=== PATIENT | male | born 1970 | race African-American/Black ===

== ENCOUNTER 2019-12-16 09:44 | Emergency (ER) | payer OTHER, SELFPAY ==
[2019-12-16 09:51] VITALS: BP 156/105; PULSE 56; RESP 16; TEMP 36.8; O2SAT 100; BMI 25.8
--- NOTE | 2019-12-16 09:54 | ED_ITS ---
HPI - Animal Bite General: Chief Complaint: Animal Bite Stated Complaint: DOG BITE ON RIGHT HAND Time Seen by Provider: 12/16/19 09:54 History of Present Illness: HPI narrative: 49-year-old male comes in complaining of dog bite he was bitten on his right hand last night the thenar eminence he has puncture wounds on both dorsal and palmar surfaces not been draining he denies fever he states his tetanus is up-to-date he has had over the last 3 to 4 years. It is somewhat tender he previously had a third metacarpal fracture but the dog did not bite over that area. Associated symptoms: Deny chills or fever(s) Review of Systems Const: Denies: fever, chills, body aches, change in appetite, fatigue or malaise Card: Denies: chest pain, edema, shortness of breath on exertion or shortness of breath when lying down Resp: Denies: shortness of breath, productive cough or non-productive cough GI: Denies: abdominal pain, nausea, vomiting, vomiting blood, coffee grounds in vomit, diarrhea, constipation, bloating, blood in stool or black tarry stool Skin/Breast: Reports: skin swelling and other (Puncture wounds on the thenar eminence posteriorly and anteriorly); Denies: rash or itching PFSH ED PFSH: Social History Smoking and tobacco status: current every day smoker Physical Exam Const: COMMON NORMALS: no apparent distress GENERAL APPEARANCE: cooperative and comfortable ORIENTATION/CONSCIOUSNESS: Yes awake, Yes oriented to person, Yes oriented to place and Yes oriented to time Neck/C-Spine: COMMON NORMALS: no JVD Lymph: LYMPHATIC: no lymphadenopathy noted and no lymphedema noted Resp: COMMON NORMALS: normal respiratory effort, no retractions, no use of accessory muscles and clear to auscultation bilaterally AUSCULTATION: clear to auscultation bilaterally Cardio: COMMON NORMALS: no JVD, regular rate, regular rhythm and no murmurs RATE: regular rate RHYTHM: regular rhythm Extremity: COMMON NORMALS: normal to inspection, normal capillary refill and no clubbing, cyanosis or edema NARRATIVE EXTREMITY EXAM: Moderate swelling of the thenar eminence on the right hand. There is a puncture wound on the dorsum of the thenar eminence and on the palmar surface no active drainage from the wounds. 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 There is no sign of sensation loss. There is good capillary refill. No lymphatic streaking no epitrochlear lymphadenopathy. Neuro: SENSORIUM/ORIENTATION: Yes oriented to person, Yes oriented to place and Yes oriented to time Skin: COMMON NORMALS: no rashes or lesions noted GENERAL SKIN EXAM: no rashes or lesions noted Course Vital Signs: Vital signs: Vital Signs Temperature 98.3 F 12/16/19 09:51 Pulse Rate 68 12/16/19 10:29 Respiratory Rate 16 12/16/19 10:29 Blood Pressure 136/92 12/16/19 10:29 Pulse Oximetry 99 12/16/19 10:29 MDM - Animal Bite MDM Narrative: Medical decision making narrative: Patient advised to return to the emergency room if is any fever sweats or chills develops any streaking in his arm or lymphadenopathy discussed and showed him where to look for these things will start him on some antibiotics patient states his tetanus is up-to-date. Discharge Plan Discharge Patient Disposition: Home, Self-Care Clinical Impression: Dog bite Condition: Stable Prescriptions: New Augmentin 875-125 mg tablet 1 tab PO BID Qty: 20 RF: 0 diclofenac sodium 75 mg tablet,delayed release (DR/EC) 75 mg PO Q12H PRN (Reason: pain) Qty: 20 RF: 0 Discharge Orders: Discharge Order (Routine); Ordered 12/16/19 Ordered By: Kike Dykes Referrals: Raffy Vyas [Primary Care Provider] - Discharge Diet: Usual diet Discharge Activity: Resume usual activity Activity Restrictions/Additional Instructions: Follow-up as needed with your primary care doctor or at the urgent clinic locally Discharge Date/Time: 12/16/19 10:30 Coding Level of Care Code ED Bunch Maker Hand for Marilou Garcia
--- NOTE | 2019-12-16 09:55 | XR_ITS ---
WS: [id number] RIGHT HAND: 3 VIEW(S) TECHNIQUE: PA, oblique and lateral. HISTORY: crush injury, animal bite COMPARISON: None available. No acute fracture or dislocation. Mild interphalangeal joint space narrowing. No foreign body. No significant soft tissue swelling. Small erosion at the ulnar styloid. There are several lytic lesions in the carpal bones most signific ant involving the capitate and lunate. XR/XR hand RT min 3V* [id number] IMPRESSION: 1. No fracture or foreign body. 2. Erosions in the ulnar styloid with lytic changes in the capitate and lunate . Correlate for possible rheumatoid arthritis.
--- NOTE | 2019-12-16 10:05 | PC.NURSE ---
[facility]'s office NTFD of incident.
[2019-12-16 10:29] VITALS: BP 136/92; PULSE 68; RESP 16; O2SAT 99
== END 2019-12-16 10:30 | disposition home or self-care (01) ==
PROVIDERS: Emergency Provider Family Medicine; Family Provider Family Medicine; PCP Family Medicine
DX: S61.451A Open bite of right hand, initial encounter (principal); W54.0XXA Bitten by dog, initial encounter; F17.200 Nicotine dependence, unspecified, uncomplicated
CPT/HCPCS: 12345; 73130; 99281; 99282

== ENCOUNTER 2020-01-26 01:55 | Emergency (ER) | payer OTHER, SELFPAY ==
[2020-01-26 02:29] VITALS: BP 155/98; PULSE 60; RESP 16; TEMP 37; O2SAT 98; BMI 29.0
[2020-01-26] MEDS: ondansetron 4 MG Tablet PO (02:52)
[2020-01-26] MEDS: HYDROmorphone 1 mg/mL INJ 1 mL 2 MG IM (02:52)
--- NOTE | 2020-01-26 02:59 | XR_ITS ---
WS: [id number] XR ankle RT min 3V* [id number] REASON FOR EXAM: pain FINDINGS: Fusion changes are identified in the tibia talar articulation There is degenerate changes of the fibula tibia articulations. There appears be postop changes with removal of the internal fixation changes. XR/XR ankle RT min 3V* [id number] IMPRESSION: Good fusion of the talotibial joint.
--- NOTE | 2020-01-26 02:59 | XR_ITS ---
WS: [id number] XR foot RT 2V [id number] REASON FOR EXAM: pain FINDINGS: There is evidence of fusion of the tail are tibial joint. The calcaneus was normal. There is scattered degenerate changes over the talus, tarsal navicular. XR/XR foot RT 2V [id number] IMPRESSION: Talotibial fusion. osteoarthritic changes.
--- NOTE | 2020-01-26 03:26 | ED_ITS ---
HPI - Extremity Problem General: Chief complaint: Extremity Injury, Lower Stated complaint: right foot pain Time Seen by Provider: 01/26/20 02:25 History of Present Illness: HPI Narrative: 49-year-old male with a history of trauma to the right ankle requiring fusion presents with right ankle swelling and increasing pain with electrical shock sensations to his foot over the past several days. No long car trips, no fever, no increased swelling, although there is some chronic swelling. MD Complaint: extremity pain, extremity swelling and joint swelling Onset (ago): day(s) Pain Consistency: constant Location: right Radiation: proximal and distal Relieving factors: nothing Exacerbating factors: weight bearing Associated symptoms: Deny chest pain, fever(s), rash or short of breath Review of Systems Const: Denies: fever ENMT: Denies: nose bleeds, post nasal drip or facial/sinus pain Card: Denies: chest pain Resp: Denies: shortness of breath, productive cough, non-productive cough or wheezing GI: Denies: abdominal pain, nausea or vomiting : Denies: difficulty urinating or blood in urine Musc: Denies: redness or joint warmth Skin/Breast: Denies: rash, itching or redness Neuro: Denies: headache, dizziness or vertigo PFSH ED PFSH: Social History Smoking and tobacco status: never smoked Physical Exam Const: GENERAL APPEARANCE: well developed ORIENTATION/CONSCIOUSNESS: Yes oriented to person, Yes oriented to place and Yes oriented to time HENMT: COMMON NORMALS: normocephalic HEAD & SCALP: normocephalic FACE & SINUS: normal facial exam Eye: COMMON NORMALS: PERRL, EOMs intact bilaterally and conjunctivae normal EYELID: eyelids normal CONJUNCTIVA: Yes conjunctivae normal PUPIL: Yes PERRL Neck/C-Spine: COMMON NORMALS: full ROM Chest: COMMONS NORMALS: inspection of chest normal CHEST: No tenderness Resp: COMMON NORMALS: clear to auscultation bilaterally EFFORT & INSPECTION: No tachypneic, No respiratory distress, No retractions, No uses accessory muscles and No tracheal deviation AUSCULTATION: clear to auscultation bilaterally, no rhonchi, no wheezes and lung sounds not diminished Cardio: COMMON NORMALS: regular rate and regular rhythm RATE: regular rate RHYTHM: regular rhythm HEART SOUNDS: no murmurs PERIPHERAL PULSES: radial pulses present GI: INSPECTION: No abdominal distension AUSCULTATION: No hyperactive bowel sounds and No hypoactive bowel sounds PALPATION: No guarding and No rigid PERCUSSION: no dullness to percussion and no tympanic to percussion Extremity: NARRATIVE EXTREMITY EXAM: Right ankle exam reveals some mild swelling. No leg edema. No calf tenderness. There is tenderness over the posterior tibial region. No redness or warmth. Neuro: SENSORIUM/ORIENTATION: Yes oriented to person, Yes oriented to place and Yes oriented to time Psych: COMMON NORMALS: mental status grossly normal Skin: COMMON NORMALS: no rashes or lesions noted GENERAL SKIN EXAM: no rashes or lesions noted Course Vital Signs: Vital signs: Vital Signs Temperature 98.6 F 01/26/20 02:29 Pulse Rate 60 01/26/20 02:29 Respiratory Rate 16 01/26/20 02:29 Blood Pressure 155/98 01/26/20 02:29 Pulse Oximetry 98 01/26/20 02:29 MDM - Extremity (Nontraumatic) MDM Narrative: Medical decision making narrative: Pain to the posterior tibial region, no evidence for DVT. Discharge Plan Discharge Patient Disposition: Home, Self-Care Clinical Impression: Ankle joint pain Qualifiers: Laterality: right Qualified Code(s): M25.571 - Pain in right ankle and joints of right foot Condition: Stable Prescriptions: New Medrol (Carmelo) 4 mg tablets,dose pack See Rx Instructions .ROUTE .COMPLEX Qty: 21 RF: 0 [place] 5-325 mg tablet 1 tab PO Q6H PRN (Reason: pain) Qty: 7 RF: 0 Discharge Orders: Discharge Order (Routine); Ordered 01/26/20 Ordered By: Baldemar Julian Referrals: Librado Miller DPM [Physician] - Discharge Diet: Usual diet Discharge Activity: Resume usual activity Patient Instructions: Arthralgia (ED) Activity Restrictions/Additional Instructions: Return for fever greater than 100, worsening pain despite treatment, streaking redness, other concerning symptoms. Call the podiatry clinic Monday morning for an appointment. Coding Level of Care Code ED Battery Plate Assembler for Marilou Fwd Exam Comprehensive
[2020-01-26] MEDS: dexamethasone 4 mg Tablet 8 MG PO (04:18)
[2020-01-26 04:29] VITALS: BP 131/84; PULSE 52; RESP 16; O2SAT 99
--- NOTE | 2020-01-27 13:57 | DCPLANNER ---
manager legal had message to schedule a follow up appointment for patient with ortho. manager legal called ortho clinic, spoke with Pat, gave clinic patients information. manager legal was told that patients information would be printed and reviewed. Clinic will call immigration case manager and patient with appointment information.
--- NOTE | 2020-01-28 09:58 | DCPLANNER ---
Patient has a follow up appointment scheduled for Wednesday, January 29, 2020 at 8:[address] Miller. manager editorial [facility], was told that patient is not connected with [employer] [employer], he is still connected with [place], that patient would need to call his pact team in [place] and have that [facility] sign [facility] on his [facility] consult. manager editorial called patient and informed patient that he would need to call [place] about his referral. Patient stated that he would.
--- NOTE | 2020-02-14 13:46 | DCPLANNER ---
Patient did attend appointment scheduled for 01.29.20 with ortho.
== END 2020-01-26 04:34 | disposition home or self-care (01) ==
PROVIDERS: Emergency Provider Emergency Medicine
DX: M25.571 Pain in right ankle and joints of right foot (principal)
CPT/HCPCS: 12345; 73610; 73620; 96372; 99281; 99283; J1170; J8540; Q0162

== ENCOUNTER 2020-02-26 13:28 | Outpatient (CLI) | payer OTHER, SELFPAY ==
--- NOTE | 2020-02-26 13:30 | CT_ITS ---
WS: [id number] CT RIGHT FOOT, NONCONTRAST HISTORY: preoperative evaluation Technique: All CT scans at [facility] use at least one of these dose optimization techniq ues: automated exposure control; mA and/or kV adjustment per patient size (includes targeted exams wh ere dose is matched to clinical indication); or iterative reconstruction. DLP: 113.47 mGy.cm COMPARISON: RIGHT foot radiograph 01/26/2020 There is complete bony fusion across the tibiotalar joint space. Lucencies through the talus and dist al fibula are probably from prior hardware. There is marked narrowing of the subtalar joint with subc hondral cystic changes and cortical irregularities greatest along the medial subtalar joint. No acute fractures are identified. Tarsal metatarsal alignment is normal. Mild narrowing at the talonavicular articulation with osteophytes. No acute fractures. CT/CT foot RT wo con* [id number] IMPRESSION: 1. Complete bony fusion across the tibiotalar joint. 2. Hardware removal from the talus and fibula. 3. Advanced degenerative changes at the subtalar joint, greatest along the med ial joint. There is fragmentation and subchondral cystic changes and osteophyte s at the subtalar joint. Probably posttraumatic arthritis. 4. No acute fracture.
== END 2020-02-26 13:29 | disposition home or self-care (01) ==
LOC: RAD 13:31
PROVIDERS: Visit Provider Podiatrist Foot & Ankle Surgery
DX: Z01.818 Encounter for other preprocedural examination (principal)
CPT/HCPCS: 73700

== ENCOUNTER 2020-03-16 10:36 | Emergency (ER) | payer OTHER, SELFPAY ==
[2020-03-16 10:41] VITALS: BP 129/80; PULSE 63; RESP 18; TEMP 36.7; O2SAT 98; BMI 25.8
--- NOTE | 2020-03-16 11:04 | XRR_ITS ---
PROCEDURE INFORMATION: Exam: XR Right Ankle Exam date and time: 03/16/2020 11:27 AM Age: 49 years old Clinical indication: Pain; Ankle; Right; Prior surgery; Surgery date: 6+ months; Patient HX: No new injury TECHNIQUE: Imaging protocol: XR Right ankle. Views: 3 or more views. COMPARISON: CR XR ankle RT min 3V* [id number] 01/26/2020 3:25 AM FINDINGS: Bones/joints: There are complex postoperative changes, with tibiotalar fusion. Screw tracks are noted within the fibula. Soft tissues: Normal. XR/XR ankle RT min 3V* [id number] IMPRESSION: Postoperative changes, stable. Tibiotalar fusion.
--- NOTE | 2020-03-16 11:58 | W.ED.EXTPRO ---
HPI - Extremity Problem General: Chief complaint: Extremity Injury, Lower Stated complaint: right ankle pain Time Seen by Provider: 03/16/20 11:33 History of Present Illness: HPI Narrative: Chronic right ankle pain. Has a 30-day window for given appointment to pain clinic. Has been seen by Dr. Miller has been seen here in the ER couple times. For this pain. Contact the PA hotline a set of appears that he get pain management. [facility]. Associated symptoms: Deny chest pain, fever(s) or rash Review of Systems Const: Denies: fever(s), chills or body aches Eyes: Denies: change in vision or blurry vision ENMT: Denies: throat pain or nasal congestion Card: Denies: chest pain or dyspnea on exertion Resp: Denies: dyspnea, productive cough or non-productive cough GI: Denies: abdominal pain, nausea or vomiting : Denies: difficulty urinating Musc: Reports: extremity pain (Chronic right ankle) Skin/Breast: Denies: rash Neuro: Denies: headache(s) Psych: Denies: anxiety or depression Gordo/Lymph: Denies: easy bruising PFSH ED PFSH: Medical History Anxiety disorder Cervicalgia COPD (chronic obstructive pulmonary disease) Major depressive disorder Post-traumatic stress syndrome Family History Other Anesthesia complication Chronic kidney disease (CKD) Denies family history of Diabetes CAD (coronary artery disease) Clotting disorder Dementia Hyperlipidemia Psychiatric illness Suicide Bleeding disorder Family history of premature coronary artery disease Lung disease Cancer Hypertension Stroke Social History Smoking and tobacco status: never smoked Alcohol intake: never Lives independently: Yes Household members: spouse and children Physical Exam Const: COMMON NORMALS: no acute distress, average body habitus and patient oriented x3 HENMT: COMMON NORMALS: normocephalic HEAD & SCALP: normal to inspection and normocephalic FACE & SINUS: normal facial exam Eye: COMMON NORMALS: conjunctivae normal GENERAL EYE: appearance normal, both eyes and all related structures CONJUNCTIVA: Yes conjunctivae normal Neck/C-Spine: COMMON NORMALS: no JVD Chest: COMMONS NORMALS: normal inspection of the chest Resp: COMMON NORMALS: normal respiratory effort and clear to auscultation bilaterally AUSCULTATION: clear to auscultation bilaterally Cardio: COMMON NORMALS: no JVD, regular rate and regular rhythm RATE: regular rate RHYTHM: regular rhythm GI: COMMON NORMALS: Normal to inspection, nondistended, normoactive bowel sounds present Extremity: COMMON NORMALS: normal to inspection NARRATIVE EXTREMITY EXAM: Right lower extremity appears normal scars from previous surgery. Neuro: COMMON NORMALS: patient oriented x3 Course Vital Signs: Vital signs: Vital Signs Temperature 98.1 F 03/16/20 10:41 Pulse Rate 63 03/16/20 10:41 Respiratory Rate 18 03/16/20 10:41 Blood Pressure 129/80 03/16/20 10:41 Pulse Oximetry 98 03/16/20 10:41 Discharge Plan Discharge Prescriptions: No Action gabapentin 300 mg capsule 300 mg PO TID Qty: 90 RF: 0 (DME) Non-articulating [place] AFO See Rx Instructions .Route .MEDSUPPLY Qty: 1 RF: 0 Medrol (Carmelo) 4 mg tablets,dose pack See Rx Instructions .ROUTE .COMPLEX Qty: 21 RF: 0 [place] 5-325 mg tablet 1 tab PO Q6H PRN (Reason: pain) Qty: 7 RF: 0 Coding Level of Care Code ED Residence Life Coordinator for Marilou Garcia
[2020-03-16 12:13] VITALS: BP 124/83; PULSE 57; RESP 14; O2SAT 100
[2020-03-16] MEDS: ketorolac 60 mg/2 mL INJ IM (12:15)
[2020-03-16 12:50] VITALS: BP 127/78; PULSE 51; RESP 12; O2SAT 99
== END 2020-03-16 12:50 | disposition home or self-care (01) ==
PROVIDERS: Emergency Provider Nurse Practitioner Family
DX: M25.571 Pain in right ankle and joints of right foot (principal); J44.9 Chronic obstructive pulmonary disease, unspecified
CPT/HCPCS: 12345; 73610; 96372; 99281; 99283; J1885

== ENCOUNTER → 2020-06-22 14:03 | Outpatient (BNVA) | payer OTHER, SELFPAY | PROVIDERS: Visit Provider Podiatrist Foot & Ankle Surgery | DX: Z11.59 Encounter for screening for other viral diseases (principal) | CPT/HCPCS: 87635 ==

== ENCOUNTER 2020-06-26 06:08 | Day surgery (SDC) | payer OTHER, SELFPAY ==
[2020-06-25 17:47] VITALS: BMI 26.6
[2020-06-26] VITALS (15 sets, daily range): BP systolic 105–150; BP diastolic 61–88; PULSE 46–60; RESP 11–18; TEMP 36.3–37; O2SAT 95–100
--- NOTE | 2020-06-26 | XR_ITS ---
WS: [id number] Right foot, 3 C-arm fluoroscopy views, 06/26/2020 Clinical Data: RIGHT subtalar fracture Comparison: Right ankle, 03/16/2020. Findings: 2 orthopedic screws extend from the posterior aspect of the calcaneus into the talus. XR/XR foot RT 2V [id number] Impression: Orthopedic screws fusing calcaneal talar articulation.
--- NOTE | 2020-06-26 | SCC_ITS ---
Procedure Done: Right Subtalar joint fusion CPT 31274 25 seconds of fluoroscopic guidance, for a cumulative dose of 0.58 mGy, was provided to Dr. Miller by the radiology department. C-arm images of the RIGHT foot were saved for the patient's permanent record. [facility]
[2020-06-26] MEDS: sodium chloride 0.9% 1,000 ML 30 ML IV (06:35)
--- NOTE | 2020-06-26 07:10 | ANES.PREANE2 ---
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 Proposed Procedure: Operation Date: 06/26/20 07:55 Proposed Procedures p Right Subtalar joint fusion 80978 M19.071 Z98.1(Right) - Librado Miller DPM Was Beta Luma taken within 24 hours: N/A Last intake: Intake Last Liquid Date 06/25/20 Last Liquid Time 16:00 Last Solid Date 06/25/20 Last Solid Time 16:00 Social: Social History: No alcohol and No tobacco Exam: Pre-Anes Outpt Exam: alert, oriented x 3, clear to auscultation bilaterally and regular rate & rhythm Airway: Submandibular: WNL Cervical ROM: WNL MP: 1 History/ROS: No significant complaints Pulmonary: Pulmonary: None reported CV/HEM: CV/HEM: None reported : : None reported Hepatic: Hepatic: None reported GI: GI: None reported Metabolic: Metabolic: None reported Musc/skel: Musc/skel: None reported Neuropsych: Neuropsych: None reported Anesthetic Plan: ASA status: 1 Anesthesia: General Meds/Allergies Current Medications: Current Medications Generic Name Dose Route Start Last Admin Trade Name Freq PRN Reason Stop Dose Admin Sodium Chloride 1,000 mls @ 30 ml s/hr 06/26/20 06:15 06/26/20 06:35 Sodium Chloride 0.9% IV 06/27/20 06:14 30 mls/hr .Q24H EVON Administration PFSH Anesthesia PFSH: Medical History (Updated 06/23/20 @ 12:55 by Librado Miller DPM) Anxiety disorder Cervicalgia COPD (chronic obstructive pulmonary disease) Major depressive disorder Post-traumatic stress syndrome Family History Other Anesthesia complication Chronic kidney disease (CKD) Denies family history of Diabetes CAD (coronary artery disease) Clotting disorder Dementia Hyperlipidemia Psychiatric illness Suicide Bleeding disorder Family history of premature coronary artery disease Lung disease Cancer Hypertension Stroke Social History Smoking and tobacco status: never smoked Alcohol intake: never Lives independently: Yes Household members: spouse and children Data Anesthesia Cardiac Studies: No Data to Display
--- NOTE | 2020-06-26 07:52 | P.HPUD_ITS ---
Surgery/Procedure H&P Update DATE OF PROCEDURE: June 26, 2020 DATE H&P PERFORMED: 06/23/20 H&P UPDATE INFORMATION: I have reviewed H&P completed within last 30 days, I have examined patient prior to procedure, No changes to prior documentation and H&P is in [facility] EMR on date indicated PREOP DIAGNOSIS: Posttraumatic arthritis right subtalar joint PLANNED PROCEDURE: Operation Date: 06/26/20 07:55 Proposed Procedures p Right Subtalar joint fusion 10390 M19.071 Z98.1(Right) - Librado Miller DPM
--- NOTE | 2020-06-26 07:53 | PM.OP ---
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 Procedure Done: Right Subtalar joint fusion CPT 78189 Implants: [place] 28 headless compression screw 7.0 x 90 mm and 7.0 x 86 mm. 5 cc of DBM provided by [place] 28 beast to 100. 2-0 Vicryl, 4-0 Vicryl, 4-0 nylon. Specimens removed/disposition: None Pathology: none sent Surgeon: Librado Miller D.P.M. Lockstitch Binder: Aaron Anesthesia: General Estimated blood loss: 5 mL Tourniquet time: 73 min IV fluids: None Urine output: None Complications: None Findings: Degenerative joint disease at the right subtalar joint. Condition: stable Disposition: PACU Brief History: Patient is a pleasant 49-year-old male status with a history of significant right lower extremity trauma involving a ankle fracture he has history of right ankle arthrodesis. Has had progressive pain at the subtalar joint, has been utilizing a brace, custom AFO dispensed by [employer] still has debilitating pain with weightbearing. Discussed right subtalar joint arthrodesis with risks including pain, bleeding, numbness, infection, hardware pain, hardware failure, delayed union, malunion, loss of function, damage to adjacent soft tissue structure, neuropraxia, neuritis, swelling, surgical site dehiscence, infection and need for further surgical intervention. Procedure: Under mild sedation the patient was brought to the operating room and placed on the operating table in supine position. A timeout was performed. Anesthesia was then administered by the anesthesia service. Local anesthesia injected by myself consisting of 21 cc of 0.5% Marcaine plain and a right ankle block fashion. Well-padded pneumatic tourniquet applied to the right high calf. Right lower extremity was then scrubbed, prepped and draped utilizing normal aseptic technique. Attention was directed to the right lateral foot where a curvilinear incision was made 1 finger width below the right distal fibula in a curvilinear fashion to the base of the right fourth metatarsal. Dissection carried down through skin and subcutaneous tissue utilizing a combination of sharp and blunt technique. Care was taken to retract and preserve neurovascular and tendinous structures. All bleeders were ligated and cauterized as necessary. Extensor digitorum brevis was reflected from its origin and the sinus tarsi which was then evacuated of its contents utilizing a rondure. Steinmann pin and self retaining retractor utilized to access the subtalar joint was was denuded of all articular surface utilizing a power bur, flushed with saline solution followed by subchondral drilling and fenestration with curved osteotome. Next holding the right rear foot in a slight valgus approximately 3 degrees valgus position and loading the fifth ray a guidewire for a [place] 28 7 mm headless compression screw groove short thread was utilized across the arthrodesis site this was a 7.0 x 86 mm headless compression screw with excellent bony apposition and compression noted followed by a parallel more distal screw with excellent bony apposition and compression noted this was also a 7.0 mm x 90 mm [place] 28 screw, utilizing the lateral view, calcaneal axial view and ankle AP view confirming that it was well within the midline of the calcaneus and across arthrodesis site with excellent position and compression. Temporary fixation was removed. Based 105 cc of demineralized bone matrix introduced at the arthrodesis site at all voids. Incision site was then flushed with saline solution. Extensor digitorum brevis muscle origin was reattached down to the periosteum utilizing 2-0 Vicryl followed by closure of deep tissue with 2-0 Vicryl, subcutaneous tissue closed with 4-0 Vicryl and skin closed with 4-0 nylon both at the lateral sinus Tarsi incision as well as posterior heel at percutaneous screw sites. Incision site was dressed with Adaptic, sterile 4 x 4's, Kerlix and Gamal wrap followed by application of cam boot. Tourniquet was deflated and a prompt hyperemic response was noted to the distal digits of the right foot. Patient tolerated the procedure well and was transferred to the PACU with vital signs stable and vascular status intact. Following a period of postoperative monitoring he will be discharged home is to remain strict nonweightbearing to the right lower extremity was given postoperative instructions on discharge paperwork.
--- NOTE | 2020-06-26 09:51 | SUR.PHASEI ---
pt resting quietly vss iv patent rt foot in boot, distal toes pink warm with cap refill less than 3 seconds.
--- NOTE | 2020-06-26 10:03 | SUR.PHASEI ---
1003 ORAL AIRWAY REMOVED AT THIS TIME. SPO2 100% ON SIMPLE MASK AT 10L.
[2020-06-26] MEDS: fentaNYL 50 mcg/mL INJ 2mL IVP (10:07)
[2020-06-26] MEDS: midazolam 1 mg/mL INJ 2 mL 2 MG IVP (10:30)
--- NOTE | 2020-06-26 11:10 | SUR.PHASEI ---
1042 pt earllier awakened and was confused , pt has a HX OF PTSD PT THINKS HE IS IN COMBAT, PT REORIENTED MULTIPLE TIMES, REMAINS CONFUSED BUT CALM OPS CALLING FOR TO COME TO PACU. SEE VERSED GIVEN PER ANESTHESTHESIA INSTRUCTION, PT CALMER NOW AT BEDSIDE PT ALERT ORIENTED AND ASKING FOR PIZZA HANDOFF AT BEDSIDE TO SAM ZAIDI.
[2020-06-26] MEDS: oxyCODONE-APAP 10-325 mg Tablet 1 TAB PO (11:29)
== END 2020-06-26 11:49 | disposition home or self-care (01) ==
PROVIDERS: Visit Provider Podiatrist Foot & Ankle Surgery
PROC: (CPT 28725; principal; 2020-06-26 07:55)
DX: M19.071 Primary osteoarthritis, right ankle and foot (principal); J44.9 Chronic obstructive pulmonary disease, unspecified; F32.9 Major depressive disorder, single episode, unspecified; F41.9 Anxiety disorder, unspecified
CPT/HCPCS: 28725; 12345; 73620; 76000; 96365; C1713; C9290; J0131; J0690; J1100; J1885; J2250; J2405; J3010; J3490; J7030

== ENCOUNTER → 2020-07-16 08:49 | Outpatient (BNVA) | payer OTHER, SELFPAY | PROVIDERS: Visit Provider Podiatrist Foot & Ankle Surgery | DX: Z98.890 Other specified postprocedural states (principal); Z98.1 Arthrodesis status; M19.071 Primary osteoarthritis, right ankle and foot | CPT/HCPCS: 73610 ==

== ENCOUNTER → 2020-08-10 08:25 | Outpatient (BNVA) | payer OTHER, SELFPAY | PROVIDERS: Visit Provider Podiatrist Foot & Ankle Surgery | DX: Z98.890 Other specified postprocedural states (principal); M19.071 Primary osteoarthritis, right ankle and foot; Z98.1 Arthrodesis status | CPT/HCPCS: 73610 ==

== ENCOUNTER → 2020-09-07 10:12 | Outpatient (BNVA) | payer OTHER, SELFPAY | PROVIDERS: Visit Provider Podiatrist Foot & Ankle Surgery | DX: Z98.890 Other specified postprocedural states (principal); M19.071 Primary osteoarthritis, right ankle and foot; Z98.1 Arthrodesis status | CPT/HCPCS: 73630 ==

== ENCOUNTER → 2020-10-06 08:09 | Outpatient (BNVA) | payer OTHER, SELFPAY | PROVIDERS: Visit Provider Podiatrist Foot & Ankle Surgery | DX: Z98.890 Other specified postprocedural states (principal); M19.071 Primary osteoarthritis, right ankle and foot; Z98.1 Arthrodesis status | CPT/HCPCS: 73630 ==